=== PATIENT | male | born 1985 | race African-American/Black ===

== ENCOUNTER 2022-02-16 02:04 | Emergency (ER) | payer BC ==
[2022-02-16] MEDS ORDERED: TETANUS & DIPHTHERIA TOX,ADULT 0.5 ML VIAL ONE (02:28)
[2022-02-16 02:45] LABS: Urine Blood Negative (Negative); Urine Glucose Negative (Negative); Urine Protein Negative (Negative); Urine Specific Gravity 1.025 (1.005-1.030)
[2022-02-16 02:48] LABS: Hematocrit 40.9 % (39.6-49.0); Lymphocytes % 24.9 % (15.3-44.8); MCV 88.7 fL (80-100); MPV 8.3 fL (7.6-11.3); RBC Red Blood Cell Count 4.62 M/uL (4.33-5.43)
[2022-02-16 03:03] LABS: Barbiturates NEGATIVE (NEGATIVE); Benzodiazepines NEGATIVE (NEGATIVE); Cocaine NEGATIVE (NEGATIVE); METHAMPHETAM NEGATIVE (NEGATIVE); Methadone NEGATIVE (NEGATIVE); Opiates NEGATIVE (NEGATIVE); Phencyclidine NEGATIVE (NEGATIVE); THC Cannibis NEGATIVE (NEGATIVE)
[2022-02-16 03:25] LABS: ALT/SGPT 13 U/L (12-78); Albumin 3.6 g/dL (3.4-5.0); Alkaline Phosphatase 45 U/L (45-117); BUN Blood Urea Nitrogen 11 mg/dL (7-18); Bicarbonate 26 mmol/L (21-32); Bilirubin Total 0.4 mg/dL (0.2-1.0); Glomerular Filtration Rate 91 ml/min (=/>90); Glucose Level 96 mg/dL (74-106); Protein, Total 7.4 g/dL (6.4-8.2); Sodium Level 139 mmol/L (136-145)
[2022-02-16 03:26] LABS: AST/SGOT 17 U/L (15-37); Bilirubin Direct < 0.1 mg/dL (0-0.2); Potassium 4.2 mmol/L (3.5-5.1)
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
[2022-02-16 05:02] VITALS: BP 112/72; TEMP 98.1; O2SAT 100
--- NOTE | 2022-02-16 12:48 | EKG ---
Test Date: 2022-02-16 Test Time: 03:11:02 Call Box Wirer: VIDAL MEASUREMENT RESULTS: Intervals: Rate: 55 ND: 188 QRSD: 104 QT: 400 QTc: 382 [place]: P: 57 ND: 188 QRS: 28 T: 51 INTERPRETIVE STATEMENTS: Sinus bradycardia Otherwise normal ECG No previous ECG available for comparison Electronically Signed On 02-16-22 12:48:02 CDT by Alan Joyner
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
== END 2022-02-16 04:19 | disposition home or self-care (01) ==
LOC: ER 02:04
DX: G40.89 Other seizures (principal); S01.112A Laceration without foreign body of left eyelid and periocular area, initial encounter; S09.90XA Unspecified injury of head, initial encounter; Z23 Encounter for immunization; F17.210 Nicotine dependence, cigarettes, uncomplicated
CPT/HCPCS: 36415; 70450; 80048; 80076; 80307; 80320; 80329; 81003; 85025; 90471; 90714; 93005; 99284

== ENCOUNTER 2022-06-04 04:54 | Emergency (ER) | payer OTHER ==
[2022-06-04] MEDS ORDERED: MORPHINE 4 MG/ML SYR ONE (05:44)
[2022-06-04] MEDS ORDERED: LEVETIRACETAM 500 MG/5 ML VIAL IV ONE (05:44)
[2022-06-04] MEDS ORDERED: NA CHLORIDE 0.9% 100 ML IV ONE (05:45)
[2022-06-04] MEDS ORDERED: ONDANSETRON 4 MG/2 ML VIAL ONE (05:45)
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
--- NOTE | 2022-06-04 06:36 | ER ---
Nurse's Notes [facility] Name: Boris Kimbrough Age: 37 yrs Sex: Male : 1985 Arrival Date: 06/04/2022 Time: 04:57 Bed 2 Private MD: Diagnosis: Epileptic seizures related to external causes, not intractable, without status [id number] with medication Presentation: 06/04 04:58 Chief complaint: EMS states: [facility] unit called reporting pt was having a seizure. Pt joaquín was found on the ground seizing. He was post ictal for about 25 minutes. Coronavirus screen: At this time, the client does not indicate any symptoms associated with coronavirus-19. Ebola Screen: No symptoms or risks identified at this time. Initial Sepsis Screen: Does the patient meet any 2 criteria? No. Patient's initial sepsis screen is negative. Does the patient have a suspected source of infection? No. Patient's initial sepsis screen is negative. Risk Assessment: Do you want to hurt yourself or someone else? Patient reports no desire to harm self or others. Onset of symptoms was June 04, 2022. Transition of care: patient was not received from another setting of care. 04:58 Method Of Arrival: EMS: [facility] jb4 04:58 Acuity: LUCHO 3 jb4 Historical: - Allergies: 05:03 No Known Allergies; jb4 - Home Meds: 05:03 Keppra 1,000 mg Oral tab 1 tab every 12 hours [Active]; jb4 - PMHx: 05:03 Seizure; depression; jb4 - Immunization history:: Adult Immunizations up to date. - Social history:: Smoking status: Patient denies any tobacco usage or history of. - Family history:: not pertinent. - Hospitalizations: : No recent hospitalization is reported. Screenin:04 [facility] ED Fall Risk Assessment (Adult) History of falling in the last 3 months, jb4 including since admission Yes- single mechanical fall (1 pt) Confusion or Disorientation No (0 pts) Intoxicated or Sedated No (0 pts) Impaired Gait No (0 pts) Mobility Assist Device Used No (0 pt) Altered Elimination No (0 pt) Score/Fall Risk Level 0 - 2 = Low Risk Oriented to surroundings, Maintained a safe environment, Educated pt \T\ family on fall prevention, incl call for assistance when getting out of bed. Abuse screen: Denies threats or abuse. Nutritional screening: No deficits noted. Tuberculosis screening: No symptoms or risk factors identified. Fall Risk Fall in past 12 months (25 points). Secondary diagnosis (15 points) seizures, Mental Status- Oriented to own ability (0 pts). Total Aranda Fall Scale indicates Low Risk Score (25-44 pts). Fall prevention measures have been instituted. Side Rails Up X 2 Placed close to Nursing Station Frequent Obs/Assesments occuring Family Present and informed to notify staff if they need to leave bedside As available Patient and Family Educated on Fall Prevention Program and strategies. Assessment: 05:04 General: Appears in no apparent distress. uncomfortable, Behavior is. Pain: Complains jb4 of pain in forehead Pain does not radiate. Pain currently is 6 out of 10 on a pain scale. Neuro: Level of Consciousness is awake, alert, obeys commands, Oriented to person, place, time, situation. Cardiovascular: Patient's skin is warm and dry. Respiratory: Airway is patent Respiratory effort is even, unlabored, Respiratory pattern is regular, symmetrical. GI: No signs and/or symptoms were reported involving the gastrointestinal system. : No signs and/or symptoms were reported regarding the genitourinary system. EENT: No signs and/or symptoms were reported regarding the EENT system. Derm: Skin is intact, Skin is dry, Skin is normal, Skin temperature is warm. Musculoskeletal: Circulation, motion, and sensation intact. Range of motion: intact in all extremities. 06:09 Reassessment: Patient and/or family updated on plan of care and expected duration. Pain vc1 level reassessed. Patient is alert, oriented x 3, equal unlabored respirations, skin warm/dry/pink. Patient states symptoms have improved. Vital Signs: 04:58 BP 123 / 88; Pulse 76; Resp 16; Temp 99.0(O); Pulse Ox 100% on R/A; Weight 81.65 kg jb4 (R); Pain 6/10; 06:00 BP 122 / 86; Pulse 53; Pulse Ox 100% ; vc1 ED Course: 04:57 Patient arrived in ED. jb4 04:59 Jason Gardner MD is Attending Physician. rn 05:03 Triage completed. jb4 05:03 Arm band placed on right wrist. jb4 05:04 Patient has correct armband on for positive identification. Placed in gown. Bed in low jb4 position. Call light in reach. Side rails up X 1. Client placed on continuous cardiac and pulse oximetry monitoring. NIBP monitoring applied. 05:22 CT Head C Spine In Process Unspecified. EDMS 05:53 Inserted saline lock: 22 gauge in left antecubital area, using aseptic technique. jb4 06:47 No provider procedures requiring assistance completed. IV discontinued, intact, vc1 bleeding controlled, No redness/swelling at site. Pressure dressing applied. Administered Medications: 05:51 Drug: morphine 4 mg Route: IVP; Infused Over: 4 mins; Site: left antecubital; vc1 06:47 Follow up: Response: No adverse reaction; Marked relief of symptoms; Pain is decreased vc1 05:51 Drug: Zofran (Ondansetron) 4 mg Route: IVP; Site: left antecubital; vc1 06:47 Follow up: Response: No adverse reaction; Marked relief of symptoms vc1 05:52 Drug: Keppra (levETIRAcetam) 1000 mg Route: IV; Rate: calculated rate; Site: left jb4 antecubital; 06:52 Follow up: Response: No adverse reaction; Marked relief of symptoms; IV Status: vc1 Completed infusion; IV Intake: 100ml Medication: 05:04 VIS not applicable for this client. jb4 Intake: 06:52 IV: 100ml; Total: 100ml. vc1 Outcome: 06:36 Discharge ordered by . rn 06:47 Condition: good vc1 06:50 Discharged to Security guards to return to the [facility] vc1 06:50 Discharge instructions given to patient, Instructed on discharge instructions, follow up and referral plans. medication usage, Demonstrated understanding of instructions, follow-up care, medications, Prescriptions given X 06:53 Patient left the ED. vc1 Signatures: Dispatcher [employer] EDMS Jason Gardner MD MD rn Bryson, James, RN RN jb4 Liliya Calhoun RN RN vc1
[2022-06-04 07:03] VITALS: TEMP 99; O2SAT 100
[2022-06-04 07:08] VITALS: BP 122/86
--- NOTE | 2022-06-04 12:58 | RAD REPORT ---
EXAM DESCRIPTION: CT Head and Cervical Spine Without Intravenous Contrast CLINICAL HISTORY: The patient is 37 years old and is Male; head injury, neck pain TECHNIQUE: Axial computed tomography images of the head/brain and cervical spine without intravenous contrast. Sagittal and coronal reformatted images were created and reviewed. This CT exam was pe rformed using one or more of the following dose reduction techniques: automated exposure control, a djustment of the mA and/or kV according to patient size, and/or use of iterative reconstruction techn ique. COMPARISON: 02/16/2022 CT head without contrast FINDINGS: BRAIN: Redemonstrated left greater than right frontal lobe encephalomalacia with commen surate anterior ventricular horn enlargement. No acute tyler-white matter differentiation abnormality. No intracranial hemorrhage or abnormal extra-axial fluid collection. No midline shift or transtentorial herniation. VENTRICLES: Unremarkable. No ventriculomegaly. SKULL: Redemonstrated posttraumatic changes involving the right frontal bone, orbits, and paranasa l sinuses, with right globe prosthesis again noted. Redemonstrated left frontal bone postsurgical/ishaan hole changes with no acute osseous abnorm ality of the calvarium or visualized facial bones. SINUSES: See above. MASTOID AIR CELLS: Unremarkable as visualized. No mastoid effusion. VERTEBRAE: No acute fracture. Normal alignment. DISCS/SPINAL CANAL/NEURAL FORAMINA: Multilevel spondylosis. No spinal canal stenosis. SOFT TISSUES: Notable asymmetric soft tissue swelling involving the right periorbital soft tissues , possibly reflecting an acute soft tissue contusion. LUNG APICES: Trace biapical scarring with patchy groundglass nodularities in the right lung apex, in completely evaluated. IMPRESSION: 1. No acute intracranial or cervical spine abnormality. 2. Right periorbital soft tissue swelling, suggesting acute soft tissue contusion. 3. Redemonstrated extensive posttraumatic changes involving the bilateral frontal lobes and right f rontal, orbital, and paranasal sinus bony structures. 4. Partially visualized trace biapical scarring and right apical groundglass opacities, incompletel y evaluated on this exam. Recommend further characterization by dedicated chest imaging. Electronically signed by: Elvis Knapp MD 06/04/2022 5:42 AM RN CARDIOVASCULAR Due to temporary technical issues with the PACS/Fluency reporting system, reports are being signed by the in house radiologists without review as a courtesy to insure prompt reporting. The interpreting radiologist is fully responsible for the content of the report.
== END 2022-06-04 06:53 | disposition home or self-care (01) ==
LOC: ER 04:54
DX: G40.509 Epileptic seizures related to external causes, not intractable, without status epilepticus (principal); Z91.14 Patient's other noncompliance with medication regimen
CPT/HCPCS: 70450; 72125; J1953; J2405